=== PATIENT | male | born 1960 | race Two or more races ===

== ENCOUNTER 2019-04-28 10:49 | Inpatient (IN) | payer MEDICAID ==
[2019-04-28] VITALS (11 sets, daily range): BP systolic 118–168; BP diastolic 38–106
[~2019-04-28] VITALS: Ht 165.1 cm; Wt 74.6 kg
[2019-04-28] MEDS ORDERED: IV NORMAL SALINE 500 ML BAG IV ONE (11:00)
[2019-04-28] MEDS ORDERED: DILTIAZEM HCL 25 MG IV IV ONE (11:00)
--- NOTE | 2019-04-28 11:02 | NUR ---
PT IS IN ROOM #2A. DR HOLDER EVALUATED THE PT.
[2019-04-28] MEDS ORDERED: DILTIAZEM HCL 25 MG IV ONE (11:04)
[2019-04-28 11:11] LABS: BASOPHILS # (AUTO) 0.1 K/uL (0.0-8.0); BASOPHILS % (AUTO) 0.7 % (0.0-2.0); EOSINOPHILS # (AUTO) 0.2 K/uL (0.0-0.7); EOSINOPHILS % (AUTO) 2.8 % (0.0-7.0); HEMATOCRIT 36.3 % (36.7-47.1); HEMOGLOBIN 12.3 g/dL (12.5-16.3); LYMPHOCYTES # (AUTO) 1.4 K/uL (20.0-40.0); LYMPHOCYTES % (AUTO) 17.7 % (20.5-51.5); MEAN CORPUSCULAR HGB CONC 34 g/dL (32.5-36.3); MEAN CORPUSCULAR VOLUME 94.7 fL (73.0-96.2); MONOCYTES # (AUTO) 0.8 K/uL (2.0-10.0); MONOCYTES % (AUTO) 9.6 % (0.0-11.0); NEUTROPHILS # (AUTO) 5.5 K/uL (1.8-8.9); NEUTROPHILS % (AUTO) 69.2 % (38.5-71.5); PLATELET COUNT (AUTO) 186 K/uL (152-348); RED BLOOD CELL COUNT(AUTO) 3.84 MIL/uL (4.06-5.63)
[2019-04-28] MEDS ORDERED: NITR0.4T48 SL (11:16)
[2019-04-28] MEDS ORDERED: METO100T14 PO (11:16)
[2019-04-28] MEDS ORDERED: ASPI-869 PO (11:16)
[2019-04-28] MEDS ORDERED: ATOR80TA PO (11:16)
[2019-04-28] MEDS ORDERED: CALC667T2 PO (11:16)
[2019-04-28] MEDS ORDERED: CLOP75TA15 PO (11:16)
[2019-04-28] MEDS ORDERED: GABA-532 PO (11:16)
[2019-04-28] MEDS ORDERED: ISOS60TA4 PO (11:16)
[2019-04-28] MEDS ORDERED: SEVE800T7 PO (11:16)
[2019-04-28 11:18] LABS: CREATININE 5.9 mg/dL (0.6-1.3); POTASSIUM 4.1 mmol/L (3.5-5.1)
[2019-04-28 11:30] LABS: BILIRUBIN,DIRECT 0.1 mg/dL (0.0-0.2); BILIRUBIN,TOTAL 0.6 mg/dL (0.2-1.0); TOTAL PROTEIN, SERUM 7.4 g/dL (6.4-8.2)
[2019-04-28] MEDS ORDERED: DILTIAZEM HCL IV 125 MG in IV DEXTROSE 5% 100 ML IV ONE (11:30)
--- NOTE | 2019-04-28 12:27 | NUR ---
PT WAS TRANSFERED TO CCU ROOM #2. REPORT WAS GIVEN TO CCU RN.
--- NOTE | 2019-04-28 12:54 | NUR ---
Patient in from [facility]. vitals as follow: Hr, fluctuating between 110-130. on cardizem drip running at 5mg sbp of 124/83, Saturation of 100% on 2L NC. c/of headache, on left side of his head, chest pain. Neuro-burkett intact. Attending physician notified of pt's arrival and current condition see order hx.
[2019-04-28] MEDS ORDERED: NITROGLYCERIN 0.4 MG/TAB BOTTLE SL PRN (13:15)
[2019-04-28] MEDS ORDERED: AMIODARONE HCL IV 150 MG in IV DEXTROSE 5% 100 ML IV ONE (13:30)
[2019-04-28] MEDS ORDERED: AMIODARONE HCL IV 900 MG in IV DEXTROSE 5% 482 ML IV PRN (13:30)
[2019-04-28] MEDS ORDERED: HEPARIN SODIUM,PORCINE 5,000 UNITS/ML VIAL IV PRN ×2 (14:00)
[2019-04-28] MEDS: HEPARIN/D5W DRIP 500 ML IV PRN (14:07)
[2019-04-28] MEDS: MORPHINE SULFATE 2 MG/1 ML DISP.SYRIN IV PRN ×3 (14:28→21:21)
[2019-04-28] MEDS: ONDANSETRON 4 MG/2 ML VIAL IV PRN ×2 (14:28→21:34)
--- NOTE | 2019-04-28 16:55 | NUR ---
Attending physician Nick Jensen in the unit to see and examine patient, full report given orders to continue with care plan received.
[2019-04-28] MEDS ORDERED: SEVELAMER CARBONATE 800 MG TABLET PO SCH (17:00)
[2019-04-28] MEDS: SEVELAMER CARBONATE 800 MG TABLET PO SCH (17:03)
[2019-04-28] MEDS: CALCIUM ACETATE 667 MG CAPSULE PO SCH (17:03)
[2019-04-28] MEDS ORDERED: DEXTROSE 50% 50 ML DISP.SYRIN IV PRN (20:00)
--- NOTE | 2019-04-28 20:00 | NUR ---
no lira on patient heparin drip current [id number] unit APTT 55.2 NEXT APTT IN AM .
[2019-04-28] MEDS ORDERED: ATORVASTATIN 20 MG TABLET PO SCH (21:00)
[2019-04-28] MEDS: BLOOD SUGAR DIAGNOSTIC 1 EACH STRIP VI SCH (21:00)
--- NOTE | 2019-04-28 21:00 | NUR ---
due medication given and took with cranberry juice , f/s done and result is 261 given insulin as per sliding scale .
[2019-04-28] MEDS: ISOSORBIDE MONONITRATE 60 MG TAB.SR.24H PO SCH (21:01)
[2019-04-28] MEDS: DOCUSATE SODIUM 100 MG CAPSULE PO SCH (21:03)
[2019-04-28] MEDS: INSULIN REGULAR, HUMAN 300 UNIT/3 ML VIAL SQ PRN (21:05)
--- NOTE | 2019-04-28 21:21 | NUR ---
given morphine patient verbalized bd headache 8 over 10 and feeling SOB ,checked saturation 97 to 97% rr 18 to 20.sr on heart monitor 68 to 72 , hob up and will continue to monitor levels of pain .
--- NOTE | 2019-04-28 21:36 | NUR ---
given zofran as per patient request he said his feeling nauseous .
[2019-04-29] VITALS (26 sets, daily range): BP systolic 121–214; BP diastolic 52–93
[2019-04-29] MEDS: GABAPENTIN 100 MG CAPSULE PO PRN ×2 (00:11→22:06)
[2019-04-29] MEDS: ZOLPIDEM 5 MG TABLET PO PRN ×2 (00:11→23:23)
--- NOTE | 2019-04-29 00:11 | NUR ---
patient called and requested sleeping medication . given Ambien po .
--- NOTE | 2019-04-29 02:00 | NUR ---
sleeping in bed no s/s of pain . v/s wnl .n0 respiratory distress noted .
--- NOTE | 2019-04-29 05:30 | NUR ---
am care done ,changed soiled linens and gown patient able to help in turning .no urinary output on shift patient HD .
[2019-04-29] MEDS: PANTOPRAZOLE SODIUM 40 MG TABLET.DR PO SCH (06:17)
[2019-04-29 07:02] LABS: BASOPHILS # (AUTO) 0.1 K/uL (0.0-8.0); BASOPHILS % (AUTO) 0.8 % (0.0-2.0); EOSINOPHILS # (AUTO) 0.2 K/uL (0.0-0.7); EOSINOPHILS % (AUTO) 1.8 % (0.0-7.0); HEMOGLOBIN 10.9 g/dL (12.5-16.3); LYMPHOCYTES # (AUTO) 0.9 K/uL (20.0-40.0); LYMPHOCYTES % (AUTO) 10.5 % (20.5-51.5); MEAN CORPUSCULAR HEMOGLOBIN 31.2 uug (23.8-33.4); MEAN CORPUSCULAR HGB CONC 33 g/dL (32.5-36.3); MEAN CORPUSCULAR VOLUME 94.2 fL (73.0-96.2); MONOCYTES # (AUTO) 0.6 K/uL (2.0-10.0); MONOCYTES % (AUTO) 6.9 % (0.0-11.0); NEUTROPHILS # (AUTO) 6.9 K/uL (1.8-8.9); PLATELET COUNT (AUTO) 202 K/uL (152-348); WHITE BLOOD COUNT (AUTO) 8.6 K/uL (3.6-10.2)
[2019-04-29 07:29] LABS: BILIRUBIN,TOTAL 0.5 mg/dL (0.2-1.0); MAGNESIUM 2.3 mg/dL (1.8-2.4); PHOSPHOROUS 6.5 mg/dL (2.5-4.9); POTASSIUM 5.1 mmol/L (3.5-5.1); TOTAL PROTEIN, SERUM 7.1 g/dL (6.4-8.2)
[2019-04-29 07:32] LABS: CREATININE 8.7 mg/dL (0.6-1.3)
[2019-04-29] MEDS: BLOOD SUGAR DIAGNOSTIC 1 EACH STRIP VI SCH ×4 (08:01→20:24)
[2019-04-29] MEDS: CALCIUM ACETATE 667 MG CAPSULE PO SCH ×3 (08:02→17:13)
[2019-04-29] MEDS: SEVELAMER CARBONATE 800 MG TABLET PO SCH ×3 (08:03→17:13)
[2019-04-29] MEDS: ACETAMINOPHEN 325 MG TABLET PO PRN ×2 (08:04→20:25)
[2019-04-29] MEDS: ASPIRIN EC 81 MG TABLET.DR PO SCH (08:04)
[2019-04-29] MEDS: INSULIN REGULAR, HUMAN 300 UNIT/3 ML VIAL SQ PRN ×3 (08:07→20:19)
[2019-04-29 08:09] LABS: THYROID STIMULATING HORMONE 1.696 mIU/mL (0.358-3.740)
[2019-04-29] MEDS: ONDANSETRON 4 MG/2 ML VIAL IV PRN (08:56)
--- NOTE | 2019-04-29 09:23 | NUR ---
Attending physician called to be notified of SBP above the 160's sustained for the last hour. Awaiting call back.
--- NOTE | 2019-04-29 09:38 | NUR ---
Cardiology services, Dr. Ramon full report given informed of troponin, elevated sbp and pt's c/of n/v. and headache. No c/of chest pain.
[2019-04-29] MEDS ORDERED: hydrALAZINE HCL 20 MG/1 ML VIAL IV ONE (09:45)
[2019-04-29] MEDS: METOPROLOL TARTRATE 25 MG TABLET PO SCH ×2 (09:52→20:09)
[2019-04-29] MEDS: CLOPIDOGREL 75 MG TABLET PO SCH (10:28)
[2019-04-29] MEDS: HEPARIN/D5W DRIP 500 ML IV PRN (10:55)
--- NOTE | 2019-04-29 11:34 | NUR ---
patient remains nauseated and refusing po medications. BS not covered patient to be keept NPO for possible transfer and director of cath lab procedure. Awaiting up-dates from case-management.
--- NOTE | 2019-04-29 12:00 | NUR ---
Case management Ms Wanda Stone. actively looking for an accepting Md, and facility as requested by speech therapist early intervention for possible emergency lab systems analyst intervention see case-management documentation
--- NOTE | 2019-04-29 13:34 | NUR ---
Attending physician Nick Jensen in the unit to see and examine patient, updated report given orders to continue with care plan received. will continue to monitor.
--- NOTE | 2019-04-29 15:32 | NUR ---
Liquefaction Supervisor Dr. Ferrara called to be notified of pt's sbp been sustained above 160's. sbp of 181/81 with Hr of 63, was also updated on latest troponin results. no verbal orders received as stated "I'll place some orders in the system". Awaiting orders.
[2019-04-29] MEDS: hydrALAZINE HCL 20 MG/1 ML VIAL IV PRN ×2 (15:37→21:52)
--- NOTE | 2019-04-29 15:45 | NUR ---
Patient medicated for elevated SBP as ordered by industrial gas fitter helper, will continue to monitor.
--- NOTE | 2019-04-29 19:30 | NUR ---
rounds made patient in bed aaox4. watching tv. patient complained of generalized body itching and at home he takes benadryl , called epic service and spoked with tee Rodríguez and with x1 order of Benadryl 25 mg po .
[2019-04-29] MEDS ORDERED: diphenhydrAMINE 25 MG CAP PO PRN (19:45)
[2019-04-29] MEDS: DOCUSATE SODIUM 100 MG CAPSULE PO SCH (20:08)
[2019-04-29] MEDS: ATORVASTATIN 40 MG TABLET PO SCH (20:09)
[2019-04-29] MEDS: ISOSORBIDE MONONITRATE 60 MG TAB.SR.24H PO SCH (20:15)
--- NOTE | 2019-04-29 20:25 | NUR ---
given tylenol c/o headache ,02/15 will continue to monitor pain levels .fingerstick done and results 222 given ISS 4 units/
--- NOTE | 2019-04-29 20:30 | NUR ---
due pm medication Imdur + metoprolol bp 191/65 hr 70 to 74. will continue to monitor bp.
--- NOTE | 2019-04-29 20:53 | NUR ---
APTT results 55.2 no HEPARIN DRIP changed at 970 units/hr next aptt at 0600 04/30/2019.
[2019-04-29] MEDS ORDERED: ATORVASTATIN 20 MG TABLET PO SCH (21:00)
--- NOTE | 2019-04-29 21:51 | NUR ---
bp 180/88 hr 81 given prn hydralazine 10 mg ivp . will continue to monitor bp .
--- NOTE | 2019-04-29 23:30 | NUR ---
given sleeping medication as per patient request .unable ti sleep ,given prn Ambien .
[2019-04-30] VITALS (25 sets, daily range): BP systolic 117–203; BP diastolic 58–96
[2019-04-30] MEDS: PANTOPRAZOLE SODIUM 40 MG TABLET.DR PO SCH (06:46)
[2019-04-30 06:55] LABS: BASOPHILS # (AUTO) 0.1 K/uL (0.0-8.0); BASOPHILS % (AUTO) 0.6 % (0.0-2.0); EOSINOPHILS # (AUTO) 0.4 K/uL (0.0-0.7); EOSINOPHILS % (AUTO) 4.1 % (0.0-7.0); HEMATOCRIT 32.6 % (36.7-47.1); HEMOGLOBIN 10.8 g/dL (12.5-16.3); LYMPHOCYTES # (AUTO) 1.1 K/uL (20.0-40.0); LYMPHOCYTES % (AUTO) 12.9 % (20.5-51.5); MEAN CORPUSCULAR HEMOGLOBIN 31.6 uug (23.8-33.4); MEAN CORPUSCULAR HGB CONC 33 g/dL (32.5-36.3); MEAN CORPUSCULAR VOLUME 95.3 fL (73.0-96.2); MONOCYTES # (AUTO) 0.6 K/uL (2.0-10.0); MONOCYTES % (AUTO) 6.8 % (0.0-11.0); NEUTROPHILS # (AUTO) 6.7 K/uL (1.8-8.9); NEUTROPHILS % (AUTO) 75.6 % (38.5-71.5); PLATELET COUNT (AUTO) 201 K/uL (152-348); RED BLOOD CELL COUNT(AUTO) 3.42 MIL/uL (4.06-5.63); WHITE BLOOD COUNT (AUTO) 8.9 K/uL (3.6-10.2)
[2019-04-30 06:57] LABS: MAGNESIUM 2.2 mg/dL (1.8-2.4); POTASSIUM 5.6 mmol/L (3.5-5.1)
[2019-04-30] MEDS: BLOOD SUGAR DIAGNOSTIC 1 EACH STRIP VI SCH ×4 (07:53→20:33)
[2019-04-30 08:04] LABS: CREATININE 10.8 mg/dL (0.6-1.3)
[2019-04-30 08:05] LABS: PHOSPHOROUS 8.3 mg/dL (2.5-4.9)
[2019-04-30] MEDS: METOPROLOL TARTRATE 25 MG TABLET PO SCH (08:10)
[2019-04-30] MEDS: CLOPIDOGREL 75 MG TABLET PO SCH (08:10)
[2019-04-30] MEDS: ASPIRIN EC 81 MG TABLET.DR PO SCH (08:10)
[2019-04-30] MEDS: SEVELAMER CARBONATE 800 MG TABLET PO SCH ×3 (08:11→17:12)
[2019-04-30] MEDS: CALCIUM ACETATE 667 MG CAPSULE PO SCH ×3 (08:11→17:12)
[2019-04-30] MEDS ORDERED: METOPROLOL TARTRATE 25 MG TABLET PO ONE (10:08)
--- NOTE | 2019-04-30 11:00 | NUR ---
Nephrology services, Dr. Alondra Tyson in the unit to see and examine patient, full report given, orders received. See order hx.
[2019-04-30] MEDS: HEPARIN/D5W DRIP 500 ML IV PRN (12:34)
[2019-04-30] MEDS: INSULIN REGULAR, HUMAN 300 UNIT/3 ML VIAL SQ PRN ×3 (12:46→20:43)
--- NOTE | 2019-04-30 16:59 | NUR ---
Attending physician Brandon Jensen. in the unit to see and examine patient, full report given, orders to continue with current care plan.
--- NOTE | 2019-04-30 18:00 | NUR ---
HD RN. in the unit to dialyze pt. and at this time unable to do it due to catheter malfunctioning. Orders (for Alteplase given by Ticket Sales Agent Dr. Alondra Loaiza and written by UZMA Palmer ) faxed to pharmacist and medication administered by UZMA Hutton.
[2019-04-30] MEDS ORDERED: ALTEPLASE 2 MG VIAL IVP ONE (18:15)
--- NOTE | 2019-04-30 19:30 | NUR ---
rounds made patient verbalized he want to do no . 2 ,escorted to the bedside commode .no bm only gas , changed soiled linens and gone patient able to sponge self and able to brush his teeth with minimal assistance,patient steady of gait .no respiratory distress noted breathing even and unlabored tolerating o2 at 2 liter /min. saturation 99% rr 23.
--- NOTE | 2019-04-30 20:00 | NUR ---
patient called and verbalized generalized body itching and feel his nose is clog and his congested ,he said he takes Benadryl at home . called [facility] service and awaiting for call back .
[2019-04-30] MEDS: DOCUSATE SODIUM 100 MG CAPSULE PO SCH (20:24)
[2019-04-30] MEDS: ATORVASTATIN 40 MG TABLET PO SCH (20:24)
[2019-04-30] MEDS: GABAPENTIN 100 MG CAPSULE PO PRN (20:24)
[2019-04-30] MEDS: ISOSORBIDE MONONITRATE 60 MG TAB.SR.24H PO SCH (20:27)
[2019-04-30] MEDS: diphenhydrAMINE 50 MG/1 ML VIAL IV PRN (20:39)
--- NOTE | 2019-04-30 20:39 | NUR ---
given prn Benadryl for itchiness and as per dr: waldo Justice with help with the congestion also.
[2019-04-30] MEDS ORDERED: METOPROLOL TARTRATE 25 MG TABLET PO SCH (21:00)
[2019-04-30] MEDS: hydrALAZINE HCL 20 MG/1 ML VIAL IV PRN (22:10)
--- NOTE | 2019-04-30 22:10 | NUR ---
given hydralazine 10mg ivp for bp 203/85 hr 74 ,will continue to monitor bp .
--- NOTE | 2019-04-30 22:10 | NUR ---
:RAJANI came and visited patient ,spoked with patient with regards to plan of treatment needs a CTA in am at [facility] ,he also wants the patient to have dialysis first before CTA , called barrel leveler and spoked with Aden and he said the patient is schedule to have HD in am early about 0700 to 0800.informed drRufina menchaca alos with the trends of patinet bp still high even with po bp medication . he said he will order new medication for bp .
[2019-04-30] MEDS: ZOLPIDEM 5 MG TABLET PO PRN (22:11)
[2019-04-30] MEDS: AMLODIPINE 5 MG TABLET PO SCH (22:47)
--- NOTE | 2019-04-30 22:47 | NUR ---
Norvasc 5 mg Po new bp medication given ,will continue to monitor bp.
[2019-05-01] VITALS (23 sets, daily range): BP systolic 107–175; BP diastolic 55–111
--- NOTE | 2019-05-01 01:00 | NUR ---
sleeping in bed no respiratory distress breathing even and unlabored and saturation 95 % rr 18. no s/s/ of pain .
--- NOTE | 2019-05-01 04:30 | NUR ---
lab came and am labs collected from the midline ,cbc,bmp ,mag and phos . d/c aptt heparin drip was discontinued.
[2019-05-01 05:04] LABS: BASOPHILS # (AUTO) 0.1 K/uL (0.0-8.0); BASOPHILS % (AUTO) 0.5 % (0.0-2.0); EOSINOPHILS # (AUTO) 0.3 K/uL (0.0-0.7); EOSINOPHILS % (AUTO) 2.6 % (0.0-7.0); HEMATOCRIT 31.4 % (36.7-47.1); HEMOGLOBIN 10.4 g/dL (12.5-16.3); LYMPHOCYTES # (AUTO) 0.7 K/uL (20.0-40.0); LYMPHOCYTES % (AUTO) 7.4 % (20.5-51.5); MEAN CORPUSCULAR HGB CONC 33 g/dL (32.5-36.3); MEAN CORPUSCULAR VOLUME 93.8 fL (73.0-96.2); MONOCYTES # (AUTO) 0.7 K/uL (2.0-10.0); MONOCYTES % (AUTO) 7.4 % (0.0-11.0); NEUTROPHILS # (AUTO) 8.1 K/uL (1.8-8.9); NEUTROPHILS % (AUTO) 82.1 % (38.5-71.5); PLATELET COUNT (AUTO) 195 K/uL (152-348); RED BLOOD CELL COUNT(AUTO) 3.34 MIL/uL (4.06-5.63); WHITE BLOOD COUNT (AUTO) 9.9 K/uL (3.6-10.2)
[2019-05-01 05:18] LABS: MAGNESIUM 2.3 mg/dL (1.8-2.4); POTASSIUM 5.9 mmol/L (3.5-5.1)
[2019-05-01 05:20] LABS: CREATININE 12.7 mg/dL (0.6-1.3); PHOSPHOROUS 8.7 mg/dL (2.5-4.9)
--- NOTE | 2019-05-01 05:37 | NUR ---
skye came and did PCXR.
[2019-05-01] MEDS: PANTOPRAZOLE SODIUM 40 MG TABLET.DR PO SCH (07:02)
[2019-05-01] MEDS: BLOOD SUGAR DIAGNOSTIC 1 EACH STRIP VI SCH ×4 (07:41→21:45)
[2019-05-01] MEDS: ASPIRIN EC 81 MG TABLET.DR PO SCH (08:03)
[2019-05-01] MEDS: SEVELAMER CARBONATE 800 MG TABLET PO SCH ×3 (08:03→19:04)
[2019-05-01] MEDS: CARVEDILOL 12.5 MG TABLET PO SCH ×2 (08:03→19:43)
[2019-05-01] MEDS: AMLODIPINE 5 MG TABLET PO SCH (08:03)
[2019-05-01] MEDS: CLOPIDOGREL 75 MG TABLET PO SCH (08:03)
[2019-05-01] MEDS: CALCIUM ACETATE 667 MG CAPSULE PO SCH ×3 (08:03→19:04)
[2019-05-01 08:06] LABS: HEPATITIS B SURFACE AB Reactive (.); HEPATITIS B SURFACE AG Negative (Negative)
[2019-05-01] MEDS ORDERED: LEVOFLOXACIN 500 MG/D5W 500 MG in PREMIXED 1 EACH IV SCH ×2 (09:30→10:30)
--- NOTE | 2019-05-01 09:50 | NUR ---
Consent for CT Chest/Coronary signed by the pt. Pt aware of the procedures to be done.
--- NOTE | 2019-05-01 11:05 | NUR ---
press tender incendiary grenade here to see pt for dialysis treatment.
[2019-05-01] MEDS: INSULIN REGULAR, HUMAN 300 UNIT/3 ML VIAL SQ PRN ×2 (11:30→16:38)
--- NOTE | 2019-05-01 13:17 | NUR ---
Dr. Vazquez here to see pt. Full report given. New orders received.
--- NOTE | 2019-05-01 13:17 | NUR ---
Dialysis treatment completed. 1L of hemodialysis fluid removed. Pt stable and nad noted upon completion of dialysis treatment.
[2019-05-01] MEDS: AMIODARONE HCL 200 MG TABLET PO SCH ×2 (14:03→19:49)
[2019-05-01] MEDS: MORPHINE SULFATE 2 MG/1 ML DISP.SYRIN IV PRN ×2 (14:05→19:39)
--- NOTE | 2019-05-01 17:40 | NUR ---
Left with pt to [facility] for CT chest. Pt stable and nad noted upon leaving the unit. Full SBAR report given to ambulance.
--- NOTE | 2019-05-01 18:49 | NUR ---
Brought pt back to the unit with ambulance from [facility]. Unable to do CT at this time and tech not available for the test. made aware. No new orders received.
[2019-05-01] MEDS: ACETAMINOPHEN 325 MG TABLET PO PRN (19:44)
[2019-05-01] MEDS: ATORVASTATIN 40 MG TABLET PO SCH (19:48)
[2019-05-01] MEDS: DOCUSATE SODIUM 100 MG CAPSULE PO SCH (19:52)
[2019-05-01] MEDS: ISOSORBIDE MONONITRATE 60 MG TAB.SR.24H PO SCH (21:46)
[2019-05-01] MEDS: ZOLPIDEM 5 MG TABLET PO PRN (22:10)
[2019-05-02] VITALS (24 sets, daily range): BP systolic 87–181; BP diastolic 55–112
[2019-05-02 05:10] LABS: BASOPHILS # (AUTO) 0.1 K/uL (0.0-8.0); BASOPHILS % (AUTO) 0.9 % (0.0-2.0); EOSINOPHILS # (AUTO) 0.3 K/uL (0.0-0.7); EOSINOPHILS % (AUTO) 4.3 % (0.0-7.0); HEMATOCRIT 30.2 % (36.7-47.1); HEMOGLOBIN 9.9 g/dL (12.5-16.3); LYMPHOCYTES # (AUTO) 0.9 K/uL (20.0-40.0); LYMPHOCYTES % (AUTO) 14.7 % (20.5-51.5); MEAN CORPUSCULAR HEMOGLOBIN 30.9 uug (23.8-33.4); MEAN CORPUSCULAR HGB CONC 33 g/dL (32.5-36.3); MEAN CORPUSCULAR VOLUME 94.4 fL (73.0-96.2); MONOCYTES # (AUTO) 0.7 K/uL (2.0-10.0); MONOCYTES % (AUTO) 10.7 % (0.0-11.0); NEUTROPHILS # (AUTO) 4.3 K/uL (1.8-8.9); NEUTROPHILS % (AUTO) 69.4 % (38.5-71.5); PLATELET COUNT (AUTO) 173 K/uL (152-348); WHITE BLOOD COUNT (AUTO) 6.1 K/uL (3.6-10.2)
[2019-05-02 05:26] LABS: MAGNESIUM 2.4 mg/dL (1.8-2.4); PHOSPHOROUS 6.9 mg/dL (2.5-4.9); POTASSIUM 5.5 mmol/L (3.5-5.1)
[2019-05-02 05:30] LABS: CREATININE 10.5 mg/dL (0.6-1.3)
[2019-05-02] MEDS: PIPERACILLIN/TAZO 2.25 G in IV DEXTROSE 5% 50 ML IV SCH ×3 (05:47→21:16)
[2019-05-02] MEDS: BLOOD SUGAR DIAGNOSTIC 1 EACH STRIP VI SCH ×4 (06:39→21:35)
[2019-05-02] MEDS: PANTOPRAZOLE SODIUM 40 MG TABLET.DR PO SCH (06:39)
[2019-05-02] MEDS: AMIODARONE HCL 200 MG TABLET PO SCH ×2 (08:08→21:22)
[2019-05-02] MEDS: CLOPIDOGREL 75 MG TABLET PO SCH (08:08)
[2019-05-02] MEDS: AMLODIPINE 5 MG TABLET PO SCH (08:08)
[2019-05-02] MEDS: ASPIRIN EC 81 MG TABLET.DR PO SCH (08:08)
[2019-05-02] MEDS: CALCIUM ACETATE 667 MG CAPSULE PO SCH ×3 (08:09→17:13)
[2019-05-02] MEDS: CARVEDILOL 12.5 MG TABLET PO SCH ×2 (08:09→17:14)
[2019-05-02] MEDS: SEVELAMER CARBONATE 800 MG TABLET PO SCH ×3 (08:10→17:13)
[2019-05-02] MEDS: hydrALAZINE HCL 20 MG/1 ML VIAL IV PRN ×2 (09:48→19:33)
[2019-05-02] MEDS: INSULIN REGULAR, HUMAN 300 UNIT/3 ML VIAL SQ PRN ×3 (11:45→21:41)
--- NOTE | 2019-05-02 11:51 | NUR ---
Ambulance here to pick pt up for transfer to CT angiogram at [place]. Full SBAR report given to RN and ambulance. Pt stable and nad noted upon leaving the unit.
--- NOTE | 2019-05-02 12:36 | NUR ---
Pt returned to the unit from [facility]. Pt unable to have the scan d/t technical difficulties per [facility] and Senior Medical Billing Specialist. made aware. No new orders received. Pt stable and nad noted upon returning to the unit.
[2019-05-02] MEDS: ONDANSETRON 4 MG/2 ML VIAL IV PRN (12:48)
--- NOTE | 2019-05-02 12:59 | NUR ---
Spoke with Dr. Vazquez on the telephone. Full SBAR report given and made aware that pt was unable to do CT Angiogram today. okay to reschedule CT test for tomorrow.
--- NOTE | 2019-05-02 16:13 | NUR ---
cafe lead here to see pt for dialysis treatment.
--- NOTE | 2019-05-02 17:55 | NUR ---
Hemodialysis treatment completed. 1L of hemodialysis of fluid removed. Pt stable and nad noted upon completion of dialysis.
[2019-05-02] MEDS: ATORVASTATIN 40 MG TABLET PO SCH (21:21)
[2019-05-02] MEDS: ISOSORBIDE MONONITRATE 60 MG TAB.SR.24H PO SCH (21:21)
[2019-05-02] MEDS: DOCUSATE SODIUM 100 MG CAPSULE PO SCH (21:22)
[2019-05-02] MEDS: ACETAMINOPHEN 325 MG TABLET PO PRN (23:58)
[2019-05-03] VITALS (23 sets, daily range): BP systolic 119–168; BP diastolic 46–89
[2019-05-03 05:25] LABS: MAGNESIUM 2.1 mg/dL (1.8-2.4); PHOSPHOROUS 4.7 mg/dL (2.5-4.9); POTASSIUM 5.7 mmol/L (3.5-5.1)
[2019-05-03 05:33] LABS: BASOPHILS # (AUTO) 0.1 K/uL (0.0-8.0); BASOPHILS % (AUTO) 0.8 % (0.0-2.0); EOSINOPHILS # (AUTO) 0.2 K/uL (0.0-0.7); EOSINOPHILS % (AUTO) 2.8 % (0.0-7.0); HEMATOCRIT 27.5 % (36.7-47.1); HEMOGLOBIN 9.4 g/dL (12.5-16.3); LYMPHOCYTES # (AUTO) 0.8 K/uL (20.0-40.0); LYMPHOCYTES % (AUTO) 11.2 % (20.5-51.5); MEAN CORPUSCULAR HEMOGLOBIN 32.2 uug (23.8-33.4); MEAN CORPUSCULAR HGB CONC 34 g/dL (32.5-36.3); MEAN CORPUSCULAR VOLUME 94.6 fL (73.0-96.2); MONOCYTES # (AUTO) 0.8 K/uL (2.0-10.0); MONOCYTES % (AUTO) 10.7 % (0.0-11.0); NEUTROPHILS # (AUTO) 5.6 K/uL (1.8-8.9); NEUTROPHILS % (AUTO) 74.5 % (38.5-71.5); PLATELET COUNT (AUTO) 186 K/uL (152-348); WHITE BLOOD COUNT (AUTO) 7.6 K/uL (3.6-10.2)
[2019-05-03 05:46] LABS: CREATININE 9.2 mg/dL (0.6-1.3)
[2019-05-03] MEDS: hydrALAZINE HCL 20 MG/1 ML VIAL IV PRN (05:47)
[2019-05-03] MEDS: PANTOPRAZOLE SODIUM 40 MG TABLET.DR PO SCH (05:52)
[2019-05-03] MEDS: PIPERACILLIN/TAZO 2.25 G in IV DEXTROSE 5% 50 ML IV SCH ×3 (05:53→21:56)
[2019-05-03] MEDS: BLOOD SUGAR DIAGNOSTIC 1 EACH STRIP VI SCH ×4 (07:49→21:55)
[2019-05-03] MEDS: SEVELAMER CARBONATE 800 MG TABLET PO SCH ×3 (07:53→17:10)
[2019-05-03] MEDS: CALCIUM ACETATE 667 MG CAPSULE PO SCH ×3 (07:53→17:09)
[2019-05-03] MEDS: CARVEDILOL 12.5 MG TABLET PO SCH ×2 (07:53→17:11)
[2019-05-03] MEDS: ASPIRIN EC 81 MG TABLET.DR PO SCH (07:56)
[2019-05-03] MEDS: AMLODIPINE 5 MG TABLET PO SCH (07:56)
[2019-05-03] MEDS: AMIODARONE HCL 200 MG TABLET PO SCH ×2 (07:57→20:21)
[2019-05-03] MEDS: CLOPIDOGREL 75 MG TABLET PO SCH (07:57)
--- NOTE | 2019-05-03 08:45 | NUR ---
PT.WAS SEEN BY GEORGES TANG.
--- NOTE | 2019-05-03 09:10 | NUR ---
PT.WAS SEEN BY . WITH NEW ORDERS.
[2019-05-03] MEDS ORDERED: SODIUM POLYSTYRENE SULFONATE 15 G/60 ML LIQUID UDC PO ONE (09:30)
[2019-05-03] MEDS ORDERED: LEVOFLOXACIN 250MG /D5W 250 MG in PREMIXED 1 EACH IV SCH (10:30)
[2019-05-03] MEDS: INSULIN REGULAR, HUMAN 300 UNIT/3 ML VIAL SQ PRN ×2 (11:44→17:12)
--- NOTE | 2019-05-03 11:45 | NUR ---
Pt.was seen by EDEN MCDONNELL MD.
--- NOTE | 2019-05-03 12:38 | NUR ---
Pt.was chicken picker by ambulance for CT-Angio to [facility] in stable condition.
--- NOTE | 2019-05-03 14:30 | NUR ---
Pt.back from [place], tolerated well,no s/s of distress.
--- NOTE | 2019-05-03 17:25 | NUR ---
Pt.family at bedside,updated with pt.condition and plan of care.
--- NOTE | 2019-05-03 18:52 | NUR ---
No changes in pt.condition, no s/s of distress.
[2019-05-03] MEDS: ONDANSETRON 4 MG/2 ML VIAL IV PRN (20:18)
[2019-05-03] MEDS: ISOSORBIDE MONONITRATE 60 MG TAB.SR.24H PO SCH (20:19)
[2019-05-03] MEDS: ACETAMINOPHEN 325 MG TABLET PO PRN (20:21)
[2019-05-03] MEDS: ATORVASTATIN 40 MG TABLET PO SCH (20:21)
[2019-05-03] MEDS: DOCUSATE SODIUM 100 MG CAPSULE PO SCH (20:22)
--- NOTE | 2019-05-03 20:51 | NUR ---
INFORMED OF CTA RESULTS, NO ORDERS OBTAINED
[2019-05-04] VITALS (18 sets, daily range): BP systolic 129–205; BP diastolic 42–104
[2019-05-04 05:27] LABS: BASOPHILS # (AUTO) 0.1 K/uL (0.0-8.0); BASOPHILS % (AUTO) 0.8 % (0.0-2.0); EOSINOPHILS # (AUTO) 0.3 K/uL (0.0-0.7); EOSINOPHILS % (AUTO) 4.7 % (0.0-7.0); HEMOGLOBIN 8.9 g/dL (12.5-16.3); LYMPHOCYTES # (AUTO) 0.9 K/uL (20.0-40.0); LYMPHOCYTES % (AUTO) 14.2 % (20.5-51.5); MEAN CORPUSCULAR HEMOGLOBIN 31.4 uug (23.8-33.4); MEAN CORPUSCULAR HGB CONC 33 g/dL (32.5-36.3); MEAN CORPUSCULAR VOLUME 95.4 fL (73.0-96.2); MONOCYTES # (AUTO) 0.7 K/uL (2.0-10.0); MONOCYTES % (AUTO) 11.2 % (0.0-11.0); NEUTROPHILS # (AUTO) 4.5 K/uL (1.8-8.9); NEUTROPHILS % (AUTO) 69.1 % (38.5-71.5); PLATELET COUNT (AUTO) 182 K/uL (152-348); RED BLOOD CELL COUNT(AUTO) 2.83 MIL/uL (4.06-5.63); WHITE BLOOD COUNT (AUTO) 6.5 K/uL (3.6-10.2)
[2019-05-04 05:35] LABS: MAGNESIUM 2.4 mg/dL (1.8-2.4); PHOSPHOROUS 5.7 mg/dL (2.5-4.9); POTASSIUM 5.7 mmol/L (3.5-5.1)
[2019-05-04 05:56] LABS: CREATININE 11.4 mg/dL (0.6-1.3)
[2019-05-04] MEDS: PIPERACILLIN/TAZO 2.25 G in IV DEXTROSE 5% 50 ML IV SCH ×3 (06:00→22:27)
[2019-05-04] MEDS: BLOOD SUGAR DIAGNOSTIC 1 EACH STRIP VI SCH ×4 (06:26→20:19)
[2019-05-04] MEDS: PANTOPRAZOLE SODIUM 40 MG TABLET.DR PO SCH (06:46)
--- NOTE | 2019-05-04 07:00 | NUR ---
HELD 6AM MING PER PHARMACY, DIALYSIS IN PROGRESS
[2019-05-04] MEDS: CALCIUM ACETATE 667 MG CAPSULE PO SCH ×3 (08:25→17:55)
[2019-05-04] MEDS: SEVELAMER CARBONATE 800 MG TABLET PO SCH ×3 (08:25→17:55)
[2019-05-04] MEDS: CLOPIDOGREL 75 MG TABLET PO SCH (08:29)
[2019-05-04] MEDS: CARVEDILOL 12.5 MG TABLET PO SCH ×2 (08:29→17:58)
[2019-05-04] MEDS: ASPIRIN EC 81 MG TABLET.DR PO SCH (08:29)
[2019-05-04] MEDS: AMLODIPINE 5 MG TABLET PO SCH ×2 (08:29→17:57)
[2019-05-04] MEDS: AMIODARONE HCL 200 MG TABLET PO SCH ×2 (08:30→20:13)
--- NOTE | 2019-05-04 08:33 | NUR ---
Hemodialysis done at this time patient stable, sleeping. HR 71, 157/64, RR 18. 98.8 temp. 3L out as reported.
--- NOTE | 2019-05-04 08:49 | NUR ---
Attending physician Dr. Patricio Mcallister in the unit to see and examine patient, full report given, orders to continue with care plan received.
--- NOTE | 2019-05-04 09:09 | NUR ---
Cardiology services, Dr. Dacosta in the unit to see and examine patient, full report given and at this time, cardiac clearance after both cardiology and attending discussed care plan.
[2019-05-04] MEDS: hydrALAZINE HCL 20 MG/1 ML VIAL IV PRN ×2 (09:32→22:35)
--- NOTE | 2019-05-04 10:57 | NUR ---
PT eval staff in the unit to work with patient, at this time patient walked to nurses station, and patient reported severe dizziness requiring to be transported back to bed with help of wheelchair. SBP of 153/63 with Hr of 153/63. dizziness resolving as stated by pt.
[2019-05-04] MEDS: INSULIN REGULAR, HUMAN 300 UNIT/3 ML VIAL SQ PRN ×3 (12:02→20:20)
[2019-05-04] MEDS: APIXABAN 5 MG TABLET PO SCH (17:59)
--- NOTE | 2019-05-04 19:50 | NUR ---
rounds made patient in bed watching tv ,aaox4/maex4. no respiratory distress noted breathing even and unlabored .tolerating 02 nasal cannula at 3 l/min saturation is 98% rr 17.SR on the heart monitor 68 .hob up . denies pain .informed patient he is now a TING status and might be transferred to TING unit.patient requested ice chips provided at bedside. call light palced with in reach .
[2019-05-04] MEDS: ISOSORBIDE MONONITRATE 60 MG TAB.SR.24H PO SCH (20:12)
[2019-05-04] MEDS: DOCUSATE SODIUM 100 MG CAPSULE PO SCH (20:13)
[2019-05-04] MEDS: ATORVASTATIN 40 MG TABLET PO SCH (20:13)
[2019-05-04] MEDS: GABAPENTIN 100 MG CAPSULE PO PRN (20:19)
--- NOTE | 2019-05-04 21:06 | NUR ---
report given to APRIL GOLDEN ,patient going to TING bed . no complains made ,v/s nwl . went via wheelchair and with chart and medication
--- NOTE | 2019-05-04 21:10 | NUR ---
due medication given and tolerated with water . f/s done and sugar is 202 given ISS .
--- NOTE | 2019-05-04 22:17 | NUR ---
patient recieved in er per gali, with cc of shortness of breath .dx of chf.pneumonia. fixed in bed and made confortable Addendum: 05/05/19 at 0019 by ROSANNE MICHAEL RN error not for this patient
[2019-05-04] MEDS: ZOLPIDEM 5 MG TABLET PO PRN (22:51)
[2019-05-05] VITALS (8 sets, daily range): BP systolic 136–165; BP diastolic 43–61
--- NOTE | 2019-05-05 03:09 | NUR ---
asleep. with no signs of distress.
--- NOTE | 2019-05-05 03:39 | NUR ---
vital signs checked and recorded, asleep .
--- NOTE | 2019-05-05 04:12 | NUR ---
patient is asleep with no signs of distress. able to turn to sides/
[2019-05-05] MEDS: PIPERACILLIN/TAZO 2.25 G in IV DEXTROSE 5% 50 ML IV SCH ×3 (05:48→21:35)
[2019-05-05 06:23] LABS: BASOPHILS # (AUTO) 0.1 K/uL (0.0-8.0); BASOPHILS % (AUTO) 0.8 % (0.0-2.0); EOSINOPHILS # (AUTO) 0.3 K/uL (0.0-0.7); EOSINOPHILS % (AUTO) 4.9 % (0.0-7.0); HEMATOCRIT 27.7 % (36.7-47.1); HEMOGLOBIN 9.2 g/dL (12.5-16.3); LYMPHOCYTES # (AUTO) 0.8 K/uL (20.0-40.0); LYMPHOCYTES % (AUTO) 11.6 % (20.5-51.5); MEAN CORPUSCULAR HEMOGLOBIN 31.4 uug (23.8-33.4); MEAN CORPUSCULAR HGB CONC 33 g/dL (32.5-36.3); MEAN CORPUSCULAR VOLUME 94.3 fL (73.0-96.2); MONOCYTES # (AUTO) 0.7 K/uL (2.0-10.0); MONOCYTES % (AUTO) 10.6 % (0.0-11.0); NEUTROPHILS % (AUTO) 72.1 % (38.5-71.5); PLATELET COUNT (AUTO) 193 K/uL (152-348); RED BLOOD CELL COUNT(AUTO) 2.94 MIL/uL (4.06-5.63); WHITE BLOOD COUNT (AUTO) 6.9 K/uL (3.6-10.2)
[2019-05-05] MEDS: BLOOD SUGAR DIAGNOSTIC 1 EACH STRIP VI SCH ×4 (06:33→20:33)
[2019-05-05 06:44] LABS: MAGNESIUM 2.3 mg/dL (1.8-2.4); PHOSPHOROUS 5.8 mg/dL (2.5-4.9); POTASSIUM 4.9 mmol/L (3.5-5.1)
[2019-05-05 06:45] LABS: CREATININE 9.2 mg/dL (0.6-1.3)
[2019-05-05] MEDS: PANTOPRAZOLE SODIUM 40 MG TABLET.DR PO SCH (07:32)
[2019-05-05] MEDS: CALCIUM ACETATE 667 MG CAPSULE PO SCH ×3 (09:00→18:05)
[2019-05-05] MEDS: CLOPIDOGREL 75 MG TABLET PO SCH (09:00)
[2019-05-05] MEDS: SEVELAMER CARBONATE 800 MG TABLET PO SCH ×3 (09:00→18:05)
[2019-05-05] MEDS: AMIODARONE HCL 200 MG TABLET PO SCH (09:01)
[2019-05-05] MEDS: AMLODIPINE 5 MG TABLET PO SCH ×2 (09:01→16:18)
[2019-05-05] MEDS: CARVEDILOL 12.5 MG TABLET PO SCH ×2 (09:01→18:11)
[2019-05-05] MEDS: APIXABAN 5 MG TABLET PO SCH ×2 (09:06→16:22)
[2019-05-05] MEDS: ONDANSETRON 4 MG/2 ML VIAL IV PRN ×2 (10:56→16:28)
[2019-05-05] MEDS: INSULIN REGULAR, HUMAN 300 UNIT/3 ML VIAL SQ PRN ×3 (11:52→21:38)
[2019-05-05] MEDS: hydrALAZINE HCL 20 MG/1 ML VIAL IV PRN (16:17)
[2019-05-05] MEDS: ACETAMINOPHEN 325 MG TABLET PO PRN (16:18)
[2019-05-05] MEDS: DOCUSATE SODIUM 100 MG CAPSULE PO SCH (21:34)
[2019-05-05] MEDS: ATORVASTATIN 40 MG TABLET PO SCH (21:34)
[2019-05-05] MEDS: ISOSORBIDE MONONITRATE 60 MG TAB.SR.24H PO SCH (21:34)
[2019-05-06] VITALS: BP 134/72
[2019-05-06 04:21] VITALS: BP 134/65
[2019-05-06] MEDS: PIPERACILLIN/TAZO 2.25 G in IV DEXTROSE 5% 50 ML IV SCH ×3 (05:35→21:08)
[2019-05-06] MEDS: BLOOD SUGAR DIAGNOSTIC 1 EACH STRIP VI SCH ×4 (06:50→20:45)
[2019-05-06] MEDS: PANTOPRAZOLE SODIUM 40 MG TABLET.DR PO SCH (06:55)
[2019-05-06 08:22] VITALS: BP 154/52
[2019-05-06] MEDS: CARVEDILOL 12.5 MG TABLET PO SCH ×2 (08:44→16:41)
[2019-05-06] MEDS: CLOPIDOGREL 75 MG TABLET PO SCH (08:45)
[2019-05-06] MEDS: CALCIUM ACETATE 667 MG CAPSULE PO SCH ×3 (08:45→16:40)
[2019-05-06] MEDS: SEVELAMER CARBONATE 800 MG TABLET PO SCH ×3 (08:45→16:40)
[2019-05-06] MEDS: AMIODARONE HCL 200 MG TABLET PO SCH (08:45)
[2019-05-06] MEDS: AMLODIPINE 5 MG TABLET PO SCH ×2 (08:46→16:41)
[2019-05-06] MEDS: APIXABAN 5 MG TABLET PO SCH ×2 (08:47→16:40)
[2019-05-06] MEDS: INSULIN REGULAR, HUMAN 300 UNIT/3 ML VIAL SQ PRN ×4 (08:51→20:48)
[2019-05-06 11:52] VITALS: BP 171/61
--- NOTE | 2019-05-06 12:34 | NUR ---
Care taken over, alert, oriented, and very appropriate. Walks to bathroom, gait steady. On HD x5 years, urinates once daily, " very little, about 50-70cc" daily. Denied any dizziness when out of bed to chair, to bathroom. Last HD 05/04. Received a phone call from dialysis, will get dialyzed again today, in the afternoon. both family and patient aware
[2019-05-06 15:31] VITALS: BP 129/57
--- NOTE | 2019-05-06 16:54 | NUR ---
1650 right now bp 161/71, taken by the author, via RFA, with HR 63, by this time HD about to begin, per HD nurse, patient can take all po meds now, and Insulin coverage for blood sugar. given
--- NOTE | 2019-05-06 20:00 | NUR ---
Received patient laying in bed. Family at bedside. A/O x 3. Room Air. TELE SR at 67. Perma cath on the left upper chest wall. Midline on the right upper arm, patent and intact. Right eye blind. Patient c/o difficult hearing. Patient state that he made MD aware. Dialysis done. 1500 output. Anuric. Safety initiated. Call light within reach. Will closely monitor.
[2019-05-06] MEDS: ATORVASTATIN 40 MG TABLET PO SCH (20:37)
[2019-05-06] MEDS: ISOSORBIDE MONONITRATE 60 MG TAB.SR.24H PO SCH (20:38)
[2019-05-06 20:39] VITALS: BP 157/44
[2019-05-06] MEDS: DOCUSATE SODIUM 100 MG CAPSULE PO SCH (20:50)
[2019-05-07] VITALS: BP 142/54
[2019-05-07 04:00] VITALS: BP 154/55
[2019-05-07] MEDS: ACETAMINOPHEN 325 MG TABLET PO PRN (05:45)
[2019-05-07] MEDS: PIPERACILLIN/TAZO 2.25 G in IV DEXTROSE 5% 50 ML IV SCH ×3 (05:45→22:36)
--- NOTE | 2019-05-07 06:07 | NUR ---
Patient slept t/o the shift. Remains in room air. TELE SR 70. C/O headaches, tylenol given. Vital signs stable. Safety and comfort measures maintained t/o shift. All meds given as ordered. All needs met.
[2019-05-07] MEDS: PANTOPRAZOLE SODIUM 40 MG TABLET.DR PO SCH (06:13)
[2019-05-07] MEDS: BLOOD SUGAR DIAGNOSTIC 1 EACH STRIP VI SCH ×4 (06:40→20:52)
[2019-05-07 07:54] VITALS: BP 131/44
--- NOTE | 2019-05-07 08:00 | NUR ---
awake alert and oriented x3 no ss of pain or distress. c/o on and off head and ear ache will notifiy md. oscar on monitor
[2019-05-07] MEDS: CLOPIDOGREL 75 MG TABLET PO SCH (08:14)
[2019-05-07] MEDS: AMLODIPINE 5 MG TABLET PO SCH ×2 (08:14→16:42)
[2019-05-07] MEDS: CALCIUM ACETATE 667 MG CAPSULE PO SCH ×3 (08:14→16:42)
[2019-05-07] MEDS: AMIODARONE HCL 200 MG TABLET PO SCH (08:15)
[2019-05-07] MEDS: CARVEDILOL 12.5 MG TABLET PO SCH ×2 (08:15→16:42)
[2019-05-07] MEDS: SEVELAMER CARBONATE 800 MG TABLET PO SCH ×3 (08:15→16:42)
[2019-05-07] MEDS: APIXABAN 5 MG TABLET PO SCH ×2 (08:17→16:43)
[2019-05-07] MEDS: hydrALAZINE HCL 20 MG/1 ML VIAL IV PRN (10:46)
--- NOTE | 2019-05-07 10:49 | NUR ---
PT C/O SEVERE HEADACHE AND EARACHE ACCOMPANIED WITH HIGH BP DR TANG MADE AWARE WITH ORDER TO CONTINUE HYDRALAZINE IV PRN. OBSERVED
[2019-05-07 11:19] VITALS: BP 178/57
[2019-05-07] MEDS: INSULIN REGULAR, HUMAN 300 UNIT/3 ML VIAL SQ PRN ×3 (11:38→20:54)
--- NOTE | 2019-05-07 12:27 | NUR ---
WOUND CARE CONSULT: PT PRESENTS WITH SCARRING ON LOWER LEGS PRESENT ON ADMISSION. PT IS AMBULATORY AND CONTINENT AT THIS TIME. WILL SEE PRN. CURRENT GREGORY SCORE IS 23.
--- NOTE | 2019-05-07 14:38 | NUR ---
report given to maintenance technician 2nd shift
[2019-05-07 15:44] VITALS: BP 178/47
--- NOTE | 2019-05-07 19:45 | NUR ---
PATIENT ALERT ORIENTED, NO SOB NO CHEST PAIN, PATIENT ON TELE MONITOR SINUS RHYTHM. PATIENT HAS NO COMPLAIN OF PAIN, OLD L AV SHUNT PRESENT. PATIENT WITH L CHEST PERMA CATH, DRESSING INTACT, R UPPER ARM MIDLINE DRESSING INTACT. CON TO MONITOR.
[2019-05-07 20:11] VITALS: BP 155/59
[2019-05-07] MEDS: DOCUSATE SODIUM 100 MG CAPSULE PO SCH (20:47)
[2019-05-07] MEDS: ATORVASTATIN 40 MG TABLET PO SCH (20:48)
[2019-05-07] MEDS: ISOSORBIDE MONONITRATE 60 MG TAB.SR.24H PO SCH (20:48)
--- NOTE | 2019-05-07 21:00 | NUR ---
PATIENT MIDLINE ON R UPPER ARM WAS PULLED OUT, IV CATH INTACT. WILL INSERT IV LINE R UPPER EXTREMETY.
[2019-05-08 00:25] VITALS: BP 142/54
[2019-05-08 04:00] VITALS: BP 134/65
[2019-05-08] MEDS: ACETAMINOPHEN 325 MG TABLET PO PRN (04:21)
[2019-05-08] MEDS: PIPERACILLIN/TAZO 2.25 G in IV DEXTROSE 5% 50 ML IV SCH ×3 (05:00→21:57)
[2019-05-08] MEDS: PANTOPRAZOLE SODIUM 40 MG TABLET.DR PO SCH (05:22)
--- NOTE | 2019-05-08 05:40 | NUR ---
PATIENT ALERT ORIENTED, NO SOB NO CHEST PAIN, PATIENT COMPLAIN OF MILD GEN BODY PAIN, GIVEN TYLENOL ORDERED WITH HELP AFTER ONE HOUR, PATIENT R AC IV HEPLOCK INTACT, INSTRUCTED PATIENT TO BE CAREFUL SO THAT IV WILL NOT DISLOGGED. PATIENT STILL SINUS RHYTHM STILL ON THE TELE MONITOR, CONT TO MONITOR.
[2019-05-08] MEDS: BLOOD SUGAR DIAGNOSTIC 1 EACH STRIP VI SCH ×4 (06:14→21:03)
[2019-05-08 06:55] LABS: MAGNESIUM 2.5 mg/dL (1.8-2.4); PHOSPHOROUS 5.2 mg/dL (2.5-4.9); POTASSIUM 5.4 mmol/L (3.5-5.1)
[2019-05-08 06:57] LABS: CREATININE 10.6 mg/dL (0.6-1.3)
[2019-05-08 07:01] LABS: BASOPHILS # (AUTO) 0.1 K/uL (0.0-8.0); EOSINOPHILS # (AUTO) 0.3 K/uL (0.0-0.7); EOSINOPHILS % (AUTO) 3.9 % (0.0-7.0); HEMATOCRIT 27.6 % (36.7-47.1); HEMOGLOBIN 9.1 g/dL (12.5-16.3); LYMPHOCYTES # (AUTO) 0.8 K/uL (20.0-40.0); MEAN CORPUSCULAR HEMOGLOBIN 31.3 uug (23.8-33.4); MEAN CORPUSCULAR HGB CONC 33 g/dL (32.5-36.3); MEAN CORPUSCULAR VOLUME 94.6 fL (73.0-96.2); MONOCYTES # (AUTO) 0.6 K/uL (2.0-10.0); MONOCYTES % (AUTO) 7.3 % (0.0-11.0); NEUTROPHILS % (AUTO) 77.8 % (38.5-71.5); PLATELET COUNT (AUTO) 201 K/uL (152-348); RED BLOOD CELL COUNT(AUTO) 2.92 MIL/uL (4.06-5.63); WHITE BLOOD COUNT (AUTO) 7.7 K/uL (3.6-10.2)
--- NOTE | 2019-05-08 08:00 | NUR ---
Received patient awake in bed. AAOx4. IV on R AC intact and patent. No s/s of acute distress. Denies chest pain/discomfort. Safety measures implemented. Will continue to monitor.
[2019-05-08] MEDS: INSULIN REGULAR, HUMAN 300 UNIT/3 ML VIAL SQ PRN ×4 (08:43→21:06)
[2019-05-08] MEDS: APIXABAN 5 MG TABLET PO SCH ×2 (08:46→17:31)
[2019-05-08] MEDS: CALCIUM ACETATE 667 MG CAPSULE PO SCH ×3 (08:47→17:31)
[2019-05-08] MEDS: CLOPIDOGREL 75 MG TABLET PO SCH (08:47)
[2019-05-08] MEDS: SEVELAMER CARBONATE 800 MG TABLET PO SCH ×3 (08:47→17:31)
[2019-05-08] MEDS: AMIODARONE HCL 200 MG TABLET PO SCH (08:48)
[2019-05-08] MEDS: CARVEDILOL 12.5 MG TABLET PO SCH ×2 (08:55→17:33)
[2019-05-08] MEDS: AMLODIPINE 5 MG TABLET PO SCH ×2 (08:55→17:31)
[2019-05-08] MEDS: hydrALAZINE HCL 20 MG/1 ML VIAL IV PRN (08:59)
[2019-05-08 11:10] VITALS: BP 147/49
[2019-05-08] MEDS ORDERED: AMLO10TA7 PO (11:14)
[2019-05-08] MEDS ORDERED: AMIO200T6 PO (11:14)
[2019-05-08] MEDS ORDERED: APIX5TAB PO (11:14)
[2019-05-08] MEDS ORDERED: CARV12.52 PO (11:14)
[2019-05-08] MEDS ORDERED: LEVO750T21 PO (11:14)
[2019-05-08 15:06] VITALS: BP 148/46
--- NOTE | 2019-05-08 18:15 | NUR ---
No s/s of distress. Denies chest pain. Patient questioning next HD. Per [facility], patient is scheduled for HD AM tomorrow. Will endorse care accordingly.
--- NOTE | 2019-05-08 18:27 | NUR ---
Blood sugar of 224 mistakenly inputted as rejected on glucometer. Blood sugar 224. Addendum: 05/08/19 at 1830 by DUDLEY SIBLEY RN INCORRECT TIME Correct time [id number]: Blood sugar: 224 4 units given per mild scale.
--- NOTE | 2019-05-08 20:00 | NUR ---
Received patient in bed awake A&Ox4. No SOB noted. No complaints of pain at this time. SR on Tele monitor at 63bpm. IV on RAC intact and patent. Safety measures observed. Call light in reach
[2019-05-08 20:19] VITALS: BP 174/60
[2019-05-08] MEDS: ISOSORBIDE MONONITRATE 60 MG TAB.SR.24H PO SCH (21:01)
[2019-05-08] MEDS: ATORVASTATIN 40 MG TABLET PO SCH (21:01)
[2019-05-08] MEDS: DOCUSATE SODIUM 100 MG CAPSULE PO SCH (21:01)
[2019-05-08] MEDS: ZOLPIDEM 5 MG TABLET PO PRN (21:01)
[2019-05-09] VITALS: BP 145/62
[2019-05-09 04:00] VITALS: BP 146/58
[2019-05-09] MEDS: PIPERACILLIN/TAZO 2.25 G in IV DEXTROSE 5% 50 ML IV SCH ×3 (05:33→21:10)
[2019-05-09] MEDS: PANTOPRAZOLE SODIUM 40 MG TABLET.DR PO SCH (06:04)
[2019-05-09] MEDS: BLOOD SUGAR DIAGNOSTIC 1 EACH STRIP VI SCH ×4 (06:36→20:43)
[2019-05-09 06:40] LABS: BASOPHILS # (AUTO) 0.1 K/uL (0.0-8.0); BASOPHILS % (AUTO) 0.9 % (0.0-2.0); EOSINOPHILS # (AUTO) 0.2 K/uL (0.0-0.7); EOSINOPHILS % (AUTO) 2.6 % (0.0-7.0); HEMATOCRIT 28.6 % (36.7-47.1); HEMOGLOBIN 9.4 g/dL (12.5-16.3); LYMPHOCYTES # (AUTO) 0.8 K/uL (20.0-40.0); LYMPHOCYTES % (AUTO) 8.4 % (20.5-51.5); MEAN CORPUSCULAR HEMOGLOBIN 31.2 uug (23.8-33.4); MEAN CORPUSCULAR HGB CONC 33 g/dL (32.5-36.3); MEAN CORPUSCULAR VOLUME 94.9 fL (73.0-96.2); MONOCYTES # (AUTO) 0.5 K/uL (2.0-10.0); MONOCYTES % (AUTO) 5.5 % (0.0-11.0); NEUTROPHILS # (AUTO) 7.9 K/uL (1.8-8.9); NEUTROPHILS % (AUTO) 82.6 % (38.5-71.5); PLATELET COUNT (AUTO) 215 K/uL (152-348); RED BLOOD CELL COUNT(AUTO) 3.01 MIL/uL (4.06-5.63); WHITE BLOOD COUNT (AUTO) 9.5 K/uL (3.6-10.2)
--- NOTE | 2019-05-09 06:50 | NUR ---
Patient slept intermittently. No SOB noted. SR on Tele monitor at 60bpm. IV reinserted on KASSIDY 20g. All needs attended. Will endorse accordingly
[2019-05-09 07:01] LABS: CREATININE 13.1 mg/dL (0.6-1.3); MAGNESIUM 2.7 mg/dL (1.8-2.4); PHOSPHOROUS 5.7 mg/dL (2.5-4.9); POTASSIUM 5.4 mmol/L (3.5-5.1)
--- NOTE | 2019-05-09 07:30 | NUR ---
PATIENT IN BED RESTING WITH NO SIGNS OF SOB NOTED AT THIS TIME AND NO C/O PAIN AT THIS TIME. CALL LIGHT WITHIN REACH, BED IN LOW POSITION NEON SIGN SERVICER AILS UP X2. SAFETY PROVIDED, WILL CONTINUE TO MONITOR.
[2019-05-09] MEDS: CALCIUM ACETATE 667 MG CAPSULE PO SCH ×3 (08:07→17:06)
[2019-05-09] MEDS: CARVEDILOL 12.5 MG TABLET PO SCH ×2 (08:07→17:09)
[2019-05-09] MEDS: SEVELAMER CARBONATE 800 MG TABLET PO SCH ×3 (08:07→17:06)
[2019-05-09] MEDS: CLOPIDOGREL 75 MG TABLET PO SCH (08:07)
[2019-05-09] MEDS: APIXABAN 5 MG TABLET PO SCH ×2 (08:09→17:10)
[2019-05-09] MEDS: AMLODIPINE 5 MG TABLET PO SCH ×2 (08:10→17:09)
[2019-05-09 11:10] VITALS: BP 175/62
[2019-05-09] MEDS: INSULIN REGULAR, HUMAN 300 UNIT/3 ML VIAL SQ PRN ×3 (13:02→20:40)
[2019-05-09 16:07] VITALS: BP 180/61
--- NOTE | 2019-05-09 16:22 | NUR ---
PATIENT HAD DIALYSIS 4L TAKEN OUT
[2019-05-09] MEDS: ACETAMINOPHEN 325 MG TABLET PO PRN (18:02)
[2019-05-09] MEDS: hydrALAZINE HCL 20 MG/1 ML VIAL IV PRN (18:12)
--- NOTE | 2019-05-09 18:12 | NUR ---
PATIENT BP 184/67 GAVE HYDRALAZINE 10MG IV.
--- NOTE | 2019-05-09 18:29 | NUR ---
PATIENT IN BED ALERT AND AWAKE WATCHING TV WITH NO SIGNS OF SOB NOTED AT THIS TIME. KEPT CLEAN AND DRY AT ALL TIMES. ALL NEEDS ATTENDED. PATIENT AMBULATED FROM BED TO BATHROOM AND DOWN THE ROSS WAY WITH RN SUPERVISION. CALL LIGHT WITHIN REACH, BED IN LOW POSITION CIRCUITS ENGINEER AILS UP X2. SAFETY PROVIDED, WILL CONTINUE TO MONITOR.
--- NOTE | 2019-05-09 19:30 | NUR ---
Received patient awake and alert in bed, A/Ox3. [place]ican speaking, but able to make needs known. No signs of acute distress noted. No complaints of pain or SOB. IV on the right upper arm is intact and patent. Perma cath noted to left chest. Safety measures initiated. Bed is low and locked, call light within reach. Will continue to monitor.
[2019-05-09 20:20] VITALS: BP 151/50
[2019-05-09] MEDS: ISOSORBIDE MONONITRATE 60 MG TAB.SR.24H PO SCH (20:42)
[2019-05-09] MEDS: ATORVASTATIN 40 MG TABLET PO SCH (20:42)
[2019-05-09] MEDS: DOCUSATE SODIUM 100 MG CAPSULE PO SCH (20:42)
[2019-05-09] MEDS: ZOLPIDEM 5 MG TABLET PO PRN (22:01)
[2019-05-10] VITALS: BP 142/58
[2019-05-10] MEDS: diphenhydrAMINE 50 MG/1 ML VIAL IV PRN (00:56)
[2019-05-10 04:00] VITALS: BP 169/64
[2019-05-10] MEDS: hydrALAZINE HCL 20 MG/1 ML VIAL IV PRN (05:32)
[2019-05-10] MEDS: PIPERACILLIN/TAZO 2.25 G in IV DEXTROSE 5% 50 ML IV SCH ×2 (05:33→13:01)
[2019-05-10] MEDS: PANTOPRAZOLE SODIUM 40 MG TABLET.DR PO SCH (06:25)
[2019-05-10] MEDS: BLOOD SUGAR DIAGNOSTIC 1 EACH STRIP VI SCH ×2 (06:54→11:57)
--- NOTE | 2019-05-10 07:10 | NUR ---
PATIENT IN BED SLEEPING WITH NO SIGNS OF SOB NOTED AT THIS TIME, NO S/S OF PAIN. KEPT CLEAN AND DRY AT ALL TIMES. CALL LIGHT WITHIN REACH, BED IN LOW POSITION DATABASE DEVELOPER AILS UP X2. SAFETY PROVIDED, WILL CONTINUE TO MONITOR.
[2019-05-10] MEDS: SEVELAMER CARBONATE 800 MG TABLET PO SCH ×2 (07:56→11:59)
[2019-05-10] MEDS: CALCIUM ACETATE 667 MG CAPSULE PO SCH ×2 (07:56→11:59)
[2019-05-10] MEDS: CARVEDILOL 12.5 MG TABLET PO SCH (07:57)
[2019-05-10] MEDS: APIXABAN 5 MG TABLET PO SCH (08:01)
[2019-05-10] MEDS: CLOPIDOGREL 75 MG TABLET PO SCH (08:01)
[2019-05-10] MEDS: AMLODIPINE 5 MG TABLET PO SCH (08:02)
[2019-05-10 11:30] VITALS: BP 144/53
[2019-05-10] MEDS: INSULIN REGULAR, HUMAN 300 UNIT/3 ML VIAL SQ PRN (12:41)
[2019-05-10 15:44] VITALS: BP 142/74
--- NOTE | 2019-05-10 16:20 | NUR ---
PATIENT DISCHARGE HOME VIA PRIVATE CAR WITH FAMILY, DISCHARGE INSTRUCTION GIVEN TO PATIENT AND FAMILY, ABLE TO VERBALIZED INSTRUCTION. BELONGINGS ACCOUNTED FOR AND SIGNED, NO S/S OF ACUTE DISTRESS NOTES, NO C/O PAIN AT THIS TIME. IV AND ID BAND REMOVED. KEPT CLEAN AND DRY AT ALL TIMES. PICTURES TAKEN. M
--- NOTE | 2019-05-10 16:20 | NUR ---
CONTINUE FROM PREVIOUS NOTES: QUESTIONS AND CONCERN ADDRESSED, ESCORTED PATIENT OUT THE FACILITY VIA WHEELCHAIR.
== END 2019-05-10 16:15 | disposition home or self-care (01) | DRG 201 ==
LOC: ER 10:49 → CCU 12:24 → TELE-TD3 05-04 21:35 → TELE3 05-07 10:30 → MEDSURG3 05-10 16:13
PROVIDERS: ADMIT Internal Medicine; ATTEND Internal Medicine
PROC: 3E033RZ Introduction of Antiarrhythmic into Peripheral Vein, Percutaneous Approach (ICD-10-PCS; principal; 2019-04-28)
PROC: 05H933Z Insertion of Infusion Device into Right Brachial Vein, Percutaneous Approach (ICD-10-PCS; principal; 2019-04-28)
PROC: 5A1D70Z Performance of Urinary Filtration, Intermittent, Less than 6 Hours Per Day (ICD-10-PCS; 2019-05-01)
DX: I48.0 Paroxysmal atrial fibrillation (principal); I21.4 Non-ST elevation (NSTEMI) myocardial infarction; I13.2 Hypertensive heart and chronic kidney disease with heart failure and with stage 5 chronic kidney disease, or end stage renal disease; J15.9 Unspecified bacterial pneumonia; E11.22 Type 2 diabetes mellitus with diabetic chronic kidney disease; E11.42 Type 2 diabetes mellitus with diabetic polyneuropathy; N18.6 End stage renal disease; I50.33 Acute on chronic diastolic (congestive) heart failure; Z99.2 Dependence on renal dialysis; N25.81 Secondary hyperparathyroidism of renal origin; D63.8 Anemia in other chronic diseases classified elsewhere; G89.29 Other chronic pain; E78.5 Hyperlipidemia, unspecified; E87.5 Hyperkalemia; I25.84 Coronary atherosclerosis due to calcified coronary lesion; Z90.49 Acquired absence of other specified parts of digestive tract; Z87.891 Personal history of nicotine dependence; R09.02 Hypoxemia; E83.39 Other disorders of phosphorus metabolism; Z79.01 Long term (current) use of anticoagulants; I48.92 Unspecified atrial flutter
CPT/HCPCS: 36415; 70030-TC; 71045; 83550; 83735; 84100; 84443; 85025; 85730; 86706; 87340; 90937; 93005; 93307; A4663; G0378; J0282; J0360; J1200; J1644; J1815; J1956; J2270; J2405; J2543; J2997; J3490; J7040; J7050; J7060; Q0163